=== PATIENT | male | born 1955 | race Caucasian/White ===

== ENCOUNTER 2024-06-11 10:21 | Emergency (ER) | payer BC ==
[~2024-06-11] VITALS: Ht 172.7 cm; Wt 75.0 kg
[2024-06-11 10:39] VITALS: TEMP 98.3; O2SAT 98
[2024-06-11 12:07] VITALS: BP 115/74; PULSE 90; RESP 16; O2SAT 99
== END 2024-06-11 12:08 | disposition home or self-care (01) ==
LOC: ER 10:21
DX: H92.01 Otalgia, right ear (principal); I10 Essential (primary) hypertension; Z86.718 Personal history of other venous thrombosis and embolism
CPT/HCPCS: 99281

== ENCOUNTER 2024-08-12 09:57 | Emergency (ER) | payer BC ==
[~2024-08-12] VITALS: Ht 172.7 cm; Wt 73.0 kg
[2024-08-12 10:31] VITALS: O2SAT 98
[2024-08-12] MEDS ORDERED: OCUFLX EACHEYE (11:21)
[2024-08-12 12:19] VITALS: BP 128/70; PULSE 81; RESP 16; TEMP 36.61404; O2SAT 98
== END 2024-08-12 12:20 | disposition home or self-care (01) ==
LOC: ER 10:33
DX: H57.89 Other specified disorders of eye and adnexa (principal); I10 Essential (primary) hypertension
CPT/HCPCS: 99283